=== PATIENT | female | born 1950 ===

== ENCOUNTER → 2024-01-29 14:02 | Outpatient (BNVA) | payer MEDICARE, MEDICAID, SELFPAY | PROVIDERS: PCP Internal Medicine; Visit Provider Internal Medicine Hypertension Specialist ==

== ENCOUNTER 2024-09-23 08:52 | Outpatient (AMB) | payer MEDICARE, MEDICAID, SELFPAY ==
--- NOTE | 2024-09-23 08:47 | HO.NEPHOV_ITS ---
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 Required: No Accompanied by: Self / Same As Patient Allergies cefepime Allergy (Unknown, Verified 09/23/24 08:48) Unknown hydromorphone [From Dilaudid] Allergy (Unknown, Verified 09/23/24 08:49) Unknown Medication List - Last Reconciled 09/23/24 by Sonny Charles MD aspirin 81 mg PO DAILY cholecalciferol (vitamin D3) 50 mcg PO DAILY docusate sodium 100 mg PO BID doxazosin 2 mg PO DAILY ezetimibe 10 mg PO DAILY ferrous sulfate 325 mg PO DAILY fluticasone propion-salmeterol 250-50 mcg/dose (Advair Diskus) 1 inh inhalation BID furosemide 40 mg PO DAILY hydralazine 100 mg PO TID insulin lispro subcut isosorbide mononitrate ER 90 mg PO DAILY medroxyprogesterone 5 mg PO DAILY metformin 1,000 mg PO DAILY metoprolol tartrate 25 mg PO DAILY nitroglycerin 0.3 mg sublingual Q5M PRN omeprazole 20 mg PO DAILY rosuvastatin 20 mg PO BEDTIME HPI Comments Details: Mele is a pleasant woman with a history of chronic kidney disease and nephrolithiasis She was last seen more than 6 months ago. Recently she was hospitalized at [facility] for renal stone and underwent a p rocedure Her daughter was on the phone along with [facility] Social History Patient Tobacco Use Status: Former Tobacco user Physical Exam Vital Signs: BMI result Body Mass Index 39.2 Results Reviewed Results Reviewed: Cr 1.27 EGFR 44 Nephrology Results: No Data to Display Assessment & Plan Assessment & Plan (1) HTN (hypertension): Code(s): I10 - Essential (primary) hypertension Category: Medical (2) CKD (chronic kidney disease): Code(s): N18.9 - Chronic kidney disease, unspecified Category: Medical (3) Nephrolithiasis: Code(s): N20.0 - Calculus of kidney Category: Medical Plan Mele is a pleasant woman with a history of hypertension chronic kidney disease nephrolithiasis. She has CKD 3 and renal function is close to baseline. She is history of nephrolithiasis Encouraged her to stay on low-sodium diet Increase p.o. fluid intake to maintain a urine output of 2 L. Continue to avoid nephrotoxic agents including NSAIDs. Continue to monitor blood pressure at home. According to her daughter blood pressure is suboptimal - sBP in 150-160 INCREASE HYDRALAZINE to 100 mg TID from BIF Maintain A1c less than 7%. We will follow her in the next 6 months or sooner if needed Orders: Orders Basic Metabolic Panel 6 Months I10 - Essential (primary) hypertension, N18.9 - Chronic kidney disease, unspecified, N20.0 - Calculus of kidney Complete Blood Count Auto Diff 6 Months I10 - Essential (primary) hypertension, N18.9 - Chronic kidney disease, unspecified, N20.0 - Calculus of kidney Medications: Changed From hydralazine 100 mg PO BID To hydralazine 100 mg PO TID 270 tabs 3RF Coding Level of Care Code Tele Est Pt Level 2 (40155) Diagnoses HTN (hypertension) I10 CKD (chronic kidney disease) N18.9 Nephrolithiasis N20.0
[2024-09-23 08:49] VITALS: BMI 39.2
== END 2024-09-23 10:07 | disposition home or self-care (01) ==
PROVIDERS: PCP Internal Medicine; Visit Provider Internal Medicine Hypertension Specialist
DX: I12.9 Hypertensive chronic kidney disease with stage 1 through stage 4 chronic kidney disease, or unspecified chronic kidney disease (principal); N18.30 Chronic kidney disease, stage 3 unspecified; N20.0 Calculus of kidney
CPT/HCPCS: 99441